=== PATIENT | male | born 1970 | race Caucasian/White ===

== ENCOUNTER 2024-11-12 08:38 | Emergency (ER) | payer MEDICARE, MEDICAID ==
[~2024-11-12] VITALS: Ht 175.3 cm; Wt 66.8 kg
--- NOTE | 2024-11-12 09:21 | RADIOLOGY REPORT ---
EXAM: DI SHOULDER, COMPLETE (MIN 2 VWS) CLINICAL INDICATION: LEFT Shoulder Pain TECHNIQUE: DI SHOULDER, COMPLETE (MIN 2 VWS) Comparison: None FINDINGS/IMPRESSION: Displaced and comminuted left humeral neck fracture
--- NOTE | 2024-11-12 09:24 | RADIOLOGY REPORT ---
EXAM: DI ELBOW, COMPLETE (3VW MIN) CLINICAL INDICATION: RIGHT ELBOW PAIN TECHNIQUE: DI ELBOW, COMPLETE (3VW MIN) Comparison: None FINDINGS/IMPRESSION: There is no evidence of acute fracture or dislocation. Diffuse soft tissue swelling with possible fluid collection in the bursa. The alignment is anatomical. There is no radiopaque foreign body.
--- NOTE | 2024-11-12 09:49 | Physician Documentation ---
History of Present Illness ~ Chief Complaint: Shoulder pain Stated Complaint: DISLOCATED SHOULDER Time Seen by MD: 09:30 OK to notify your PCP?: Yes Source: patient Mode of Arrival: Ambulatory Exam Limitations: no limitations HPI Chief Complaint: Fall, left shoulder pain Caveat: None Independent Historians: None History of Present Illness: Patient is a 53-year-old man who appears much older than his stated age presents with severe left shoulder pain, 10/10 after falling one week ago. Patient lost his balance. Patient was drinking at the time. Patient denies any other injuries. Pain is constant, worse with attempts at movement and sharp. Review of systems: All systems were reviewed and are negative except for what is indicated in the history of present illness. Past Medical History: Hypertension Past Surgical History: Noncontributory Social History: Tobacco use, alcohol use, denies other drug use Medications: Reviewed as documented Nursing Notes Allergies: Reviewed as documented in Nursing Notes Medication Reconciliation Allergies: Uncoded Allergies: ERYTHROMYCIN (Adverse Reaction, Unknown, vomiting, 11/12/24) Scheduled PRN Hydrocodone Bit/Acetaminophen (Hydrocodone-Apap 10-325 Tablet), 1 TAB PO Q12H PRN PRN for pain Review of Systems All Other Systems at this time: Reviewed and Negative ROS Patient denies any other acute symptoms other than above. All other systems are negative Physical Exam Vital Signs: RN Vital Signs have been reviewed: Yes, Temperature: 98.0, Source: Temporal, Heart Rate: 92, Respiratory Rate: 16, BP: 163/86, Pulse Oximetry: 97, Weight: 66.800 Oxygen Flow Rate: 0 Pulse Oximetry Reflects: adequate oxygenation Physical Exam General Appearance: MILD DISTRESS HEENT: Normal OP, moist oral mucosa, PERRL, EOMI, HEAD AND FACE. TRAUMATIC Neck: supple, normal ROM, trachea midline, NO MIDLINE TENDERNESS Pulmonary: No respiratory distress, CTA, BS equal Cardiac: RRR, no murmur, rub or gallop, Extremities: LEFT SHOULDER IS DIFFUSELY SWOLLEN AND DIFFUSELY TENDER, DECREASED RANGE OF MOTION OF THE LEFT SHOULDER. LEFT ELBOW IS NONTENDER. HAND AND WRIST ON THE LEFT APPEAR ATRAUMATIC. CAPILLARY REFILL IN THE FINGERS OF THE LEFT HAND. REMAINING EXTREMITIES APPEAR ATRAUMATIC WITH NORMAL RANGE OF MOTION Skin: intact, dry, warm, no rashes Neuro: AAOx3, speech is clear, no focal motor weakness, SENSATION INTACT TO LIGHT TOUCH IN FINGERS OF LEFT HAND, NORMAL FLEXION AND EXTENSION OF THE LEFT WRIST. Psych: normal affect, good eye contact, no apparent hallucination, normal speech Progress Results/Orders Results/Orders Orders - MARISA LEE MD Shoulder, Complete (Min 2 Vws) (11/12/24 08:46) Elbow, Complete (3vw Min) (11/12/24 08:46) Completed Orders - MARISA LEE MD Shoulder, Complete (Min 2 Vws) (11/12/24 08:46) Elbow, Complete (3vw Min) (11/12/24 08:46) Ketorolac Trometh 15mg/Ml Vial (Toradol (11/12/24 09:45) Hydrocodone/Apap 10/325 ([place] 10/325mg (11/12/24 09:45) Lidocaine 1% W/Epi 1:100,000 (Xylocaine (11/12/24 10:35) Medications Received in ER Medications (Trade) Dose Ordered Sig/Sulema Route PRN Reason Start Time Stop Time Status Last Admin Dose Admin (Toradol injection) 15 mg ONCE ONCE IM 11/12/24 09:45 11/12/24 09:46 DC 11/12/24 10:11 15 MG ([place] 10/325mg tab) 1 tab ONCE ONCE PO 11/12/24 09:45 11/12/24 09:46 DC 11/12/24 10:10 1 TAB Vital Signs 11/12/24 11/12/24 11/12/24 11/12/24 08:43 10:00 10:00 10:10 Temp 98.0 Pulse 92 78 Resp 16 16 16 B/P (MAP) 163/86 138/74 (95) Pulse Ox 97 97 O2 Flow Rate 0 11/12/24 10:11 Resp 16 Medical Decision Making Findings Differential diagnosis includes but is not limited to: Shoulder dislocation, shoulder fracture, humerus fracture, clavicle fracture, ulnar fracture, tibia fracture, dislocation, contusions rotator cuff injury Emergency department course/medical decision-making: Patient was a 53-year-old man who presents after having fallen one week ago. Plain films of the left shoulder show comminuted displaced fracture of the proximal humerus. Plain films of the left elbow are negative for fracture. Pat ient is already in a sling. Patient will be given Toradol for pain here along with [place]. Patient will be referred back to his primary care doctor for referral to Orthopedics. He is given the name of Dr. Fritz who is currently prevention rn today. Test results were reviewed with the patient along with the needed follow-up and treatment. Departure Time of Disposition: 09:52 Disposition: 01 HOME / SELF CARE / HOMELESS Impression: Primary Impression: Fracture of humerus Qualified Codes: S42.292A - Other displaced fracture of upper end of left humerus, initial encounter for closed fracture Additional Impression: Bursitis of right elbow Qualified Codes: M70.21 - Olecranon bursitis, right elbow Condition: Stable Discharge Instructions: Bursitis, [id number] Additional Instructions: FOLLOW UP WITH YOUR PRIMARY CARE DOCTOR AND CALL DR. FRITZ TODAY. HE IS THE ORTHOPEDIST. Referrals: MAGAN FRITZ Jr., MD, MELISSA D DO Prescriptions Cephalexin*Monohydrate* (Keflex*) 500 Mg Capsule 1 CAP PO QID, #28 CAP Prov: MARISA LEE MD 11/12/24 Hydrocodone Bit/Acetaminophen (Hydrocodone-Apap 10-325 Tablet) 10mg/325mg Tablet 1 TAB PO Q12H PRN PRN for pain, #15 TAB Prov: MARISA LEE MD 11/12/24 Education Educated: Patient Educated regarding: diagnosis, treatment MARISA LEE MD November 12, 2024 09:49
[2024-11-12] MEDS ORDERED: HYDR-3973 PO (10:03)
[2024-11-12] MEDS: HYDROcodone/acetaminophen 10/325mg tab PO ONE (10:10)
[2024-11-12] MEDS: ketorolac trometh 15mg/ml vial 15 MG/ML ML IM ONE (10:11)
[2024-11-12] MEDS: LIDOcaine 1% W/epiNEPHrine 1:100,000 20ml vial SQ ONE (10:35)
[2024-11-12] MEDS ORDERED: CEPH-585 PO (12:22)
[2024-11-12 12:40] VITALS: BP 129/68; PULSE 65; RESP 17; TEMP 98; O2SAT 98
== END 2024-11-12 12:45 | disposition home or self-care (01) ==
LOC: ER 08:39
DX: S42.202A Unspecified fracture of upper end of left humerus, initial encounter for closed fracture (principal); M70.31 Other bursitis of elbow, right elbow; I10 Essential (primary) hypertension; W19.XXXA Unspecified fall, initial encounter; Y93.89 Activity, other specified; Y92.89 Other specified places as the place of occurrence of the external cause; Y99.8 Other external cause status
CPT/HCPCS: 73030; 73080; 96372; 99284; A6258; A6402; A6449; J1885; Z7610